=== PATIENT | female | born 1965 | race Caucasian/White ===

== ENCOUNTER 2024-08-16 06:21 | Emergency (ER) | payer OTHER ==
[~2024-08-16] VITALS: Ht 162.6 cm; Wt 60.0 kg
[2024-08-16 08:13] LABS: BASOPHILS # (AUTO) 0.1 X10'3 (0-0.2); BASOPHILS % (AUTO) 1.3 % (0-1); EOSINOPHILS # (AUTO) 0.4 X10'3 (0-0.9); EOSINOPHILS % (AUTO) 6.2 % (0-6); HEMATOCRIT 44.5 % (35.0-45.0); HEMOGLOBIN 15.1 g/dl (12.0-16.0); LYMPHOCYTES % (AUTO) 16.4 % (21-51); MEAN CORPUSCULAR HEMOGLOBIN 32.2 PG (27.0-31.0); MEAN CORPUSCULAR HGB CONC 33.8 g/dL (33.0-36.5); MEAN CORPUSCULAR VOLUME 95.3 FL (78-98); MEAN PLATELET VOLUME 8.8 FL (7.4-10.4); MONOCYTES # (AUTO) 0.5 X10'3 (0-0.9); MONOCYTES % (AUTO) 9.1 % (2-12); NEUTROPHILS # (AUTO) 4.1 X10'3 (1.8-7.7); PLATELET COUNT 131 X10'3 (140-440); RED BLOOD COUNT 4.67 X10'6 (4.20-5.60); RED CELL DISTRIBUTION WIDTH 14.6 % (11.5-14.5)
[2024-08-16 08:18] LABS: ALANINE AMINOTRANSFERASE 36 U/L (12-78); ALBUMIN 3.5 G/DL (3.4-5.0); ALBUMIN/GLOBULIN RATIO 1.2 (1.1-1.5); ALKALINE PHOSPHATASE 107 IU/L (46-116); ANION GAP 6 (8-16); ASPARTATE AMINO TRANSFERASE 24 U/L (10-37); BILIRUBIN,TOTAL 0.2 MG/DL (0.1-1.0); BLOOD UREA NITROGEN 31 MG/DL (7-18); BUN/CREATININE RATIO 47.7 (10.0-20.0); CALCIUM 8.4 MG/DL (8.5-10.1); CHLORIDE 109 MMOL/L (99-107); CREATININE 0.65 MG/DL (0.40-0.90); GLUCOSE 108 MG/DL (70-104); SODIUM 143 MMOL/L (135-145); TOTAL CARBON DIOXIDE 28.1 MMOL/L (24-32); TOTAL PROTEIN 6.4 G/DL (6.4-8.2); eCRCL 78 ML/MIN; eGFR > 90 ML/MIN
[2024-08-16 08:27] LABS: PRO BRAIN NATRIURETIC PEPTIDE 57 PG/ML (0-125)
[2024-08-16 10:55] VITALS: BP 106/73; PULSE 86; RESP 12; TEMP 98; O2SAT 98
== END 2024-08-16 10:58 | disposition home or self-care (01) ==
LOC: ER 06:22
DX: R07.89 Other chest pain (principal); F32.A Depression, unspecified
CPT/HCPCS: 36415; 71045; 80053; 83880; 84484; 85025; 93005; 99285

== ENCOUNTER → 2025-02-17 | Day surgery (SDC) | payer OTHER ==
[2025-02-14 11:35] LABS: BASOPHILS # (AUTO) 0.1 X10'3 (0-0.2); BASOPHILS % (AUTO) 1.5 % (0-1); EOSINOPHILS # (AUTO) 0.5 X10'3 (0-0.9); EOSINOPHILS % (AUTO) 7.6 % (0-6); LYMPHOCYTES # (AUTO) 1.5 X10'3 (1.1-4.8); LYMPHOCYTES % (AUTO) 24.5 % (21-51); MEAN CORPUSCULAR HEMOGLOBIN 32.7 PG (27.0-31.0); MEAN CORPUSCULAR HGB CONC 34.3 g/dL (33.0-36.5); MEAN CORPUSCULAR VOLUME 95.5 FL (78-98); MEAN PLATELET VOLUME 8.4 FL (7.4-10.4); MONOCYTES # (AUTO) 0.6 X10'3 (0-0.9); MONOCYTES % (AUTO) 9.5 % (2-12); NEUTROPHILS # (AUTO) 3.6 X10'3 (1.8-7.7); NEUTROPHILS % (AUTO) 56.9 % (42-75); PRE OP HEMATOCRIT 47.1 % (35.0-45.0); PRE OP HEMOGLOBIN 16.1 g/dL (12.0-16.0); PRE OP PLATELET COUNT 162 X10'3 (140-440); PRE OP WHITE BLOOD COUNT 6.2 10'3 (4.8-10.8); RED BLOOD COUNT 4.93 X10'6 (4.20-5.60); RED CELL DISTRIBUTION WIDTH 13.6 % (11.5-14.5)
[2025-02-14 11:57] LABS: ALBUMIN 3.7 G/DL (3.4-5.0); ALBUMIN/GLOBULIN RATIO 1.3 (1.1-1.5); ALKALINE PHOSPHATASE 107 IU/L (46-116); BLOOD UREA NITROGEN 25 MG/DL (7-18); BUN/CREATININE RATIO 38.5 (10.0-20.0); CALCIUM 8.7 MG/DL (8.5-10.1); CHLORIDE 105 MMOL/L (99-107); CREATININE 0.65 MG/DL (0.40-0.90); PRE OP ALT 31 U/L (30-65); PRE OP ANION GAP 5 (8-16); PRE OP AST 22 U/L (10-37); PRE OP BILIRUB, TOTAL 0.4 MG/DL (0.0-1.0); PRE OP GLUCOSE 80 MG/DL (70-104); PRE OP POTASSIUM 4.3 MMOL/L (3.4-5.1); PRE OP SODIUM 138 MMOL/L (135-145); TOTAL CARBON DIOXIDE 28.2 MMOL/L (24-32); TOTAL PROTEIN 6.6 G/DL (6.4-8.2); eCRCL 78 ML/MIN; eGFR > 90 ML/MIN
[~2025-02-17] VITALS: Ht 162.6 cm; Wt 62.1 kg
[~2025-02-17] MED LIST: BUPIVAcaine 2.5mg/ml inj 50ml vial (contains preservative) ONE; CYAN-104 PO; DULO60CA65 PO; FERR-29 PO; GABA300T28 PO; HYDROmorphone/PF 0.2 MG/ML SYRINGE IV PRN; LIDOcaine 2% (20mg/ml) 5ml vial ONE; albuterol 2.5 MG/3 ML nebule NEB PRN; fentaNYL/PF 50MCG/1 ML 2ML syringe ONE; hydrALAZINE 20mg/ml inj. IV PRN; labetalol 20mg/4ml (5mg/ml) syringe IV PRN; meperidine/PF 25mg/ml syringe IV PRN; midazolam 1 mg/ML 2ml injection ONE; morphine 2 MG/ML inj. syringe IV PRN; morphine 4 MG/ML inj SYRINge IV PRN; ondansetron/PF 4mg/2ml inj IV PRN; proCHLORperazine 10 MG/2 ml inj IV PRN; ringers solution, lacted 1,000 ML IV SCH; triamcinolone acetonide 40mg/ml inj ONE
[2025-02-17] MEDS: ceFAZolin 2gm in dextrose, iso 50 ML IV ONE (05:30)
[2025-02-17] MEDS: famotidine 20mg tablet PO ONE (08:55)
[2025-02-17] MEDS: ringers solution, lacted 1,000 ML IV SCH (08:55)
[2025-02-17 10:29] VITALS: RESP 16; O2SAT 96
[2025-02-17 10:32] VITALS: BP 89/61; PULSE 68; RESP 16; TEMP 98.4; O2SAT 96
[2025-02-17] MEDS: BUPIVAcaine/PF 2.5 mg/ml (0.25%) 30ml vial IJ ONE (11:14)
[2025-02-17 11:23] VITALS: BP 101/62; PULSE 67; RESP 14; O2SAT 100
[2025-02-17 11:30] VITALS: BP 94/66; PULSE 53; RESP 10; O2SAT 95
[2025-02-17] MEDS: acetaminophen 1,000mg/100ml IV 100 ML IV PRN (11:30)
[2025-02-17 11:40] VITALS: BP 105/65; PULSE 69; RESP 14; O2SAT 98
[2025-02-17 11:50] VITALS: BP 110/71; PULSE 73; RESP 18; O2SAT 97
== END | disposition home or self-care (01) ==
LOC: PRE-OP 07:59
PROVIDERS: ATTEND Orthopaedic Surgery Hand Surgery
DX: G56.02 Carpal tunnel syndrome, left upper limb (principal); M65.312 Trigger thumb, left thumb; M19.90 Unspecified osteoarthritis, unspecified site; M18.12 Unilateral primary osteoarthritis of first carpometacarpal joint, left hand; M47.27 Other spondylosis with radiculopathy, lumbosacral region; F32.A Depression, unspecified; Z79.899 Other long term (current) drug therapy; Z90.710 Acquired absence of both cervix and uterus; Z98.890 Other specified postprocedural states; F17.210 Nicotine dependence, cigarettes, uncomplicated
CPT/HCPCS: 20600; 26055; 29848; 36415; 80053; 82948; 85025; 93005; J0131; J0690; J2003; J2250; J3010; J3301; J3490; J7030; J7120; Z7506; Z7512; A4215; A6449; A7000